=== PATIENT | female | born 1995 | race Caucasian/White ===

== ENCOUNTER → 2019-08-10 13:48 | Outpatient (BNVA) | payer SELFPAY | PROVIDERS: Visit Provider Obstetrics & Gynecology | DX: Z34.90 Encounter for supervision of normal pregnancy, unspecified, unspecified trimester (principal); A59.9 Trichomoniasis, unspecified | CPT/HCPCS: 81003; 84315 ==

== ENCOUNTER → 2019-08-24 08:45 | Outpatient (BNVA) | payer MEDICAID, SELFPAY | PROVIDERS: Visit Provider Obstetrics & Gynecology | DX: Z34.82 Encounter for supervision of other normal pregnancy, second trimester (principal) | CPT/HCPCS: 82950; 84315 ==

== ENCOUNTER → 2019-09-24 08:48 | Outpatient (BNVA) | payer MEDICAID, SELFPAY | PROVIDERS: Visit Provider Obstetrics & Gynecology | DX: O26.893 Other specified pregnancy related conditions, third trimester (principal); Z67.91 Unspecified blood type, Rh negative; A59.01 Trichomonal vulvovaginitis; O23.599 Infection of other part of genital tract in pregnancy, unspecified trimester | CPT/HCPCS: 84315; 85027; 87661 ==

== ENCOUNTER → 2019-10-01 08:28 | Outpatient (BNVA) | payer MEDICAID, SELFPAY | PROVIDERS: Visit Provider Obstetrics & Gynecology | DX: Z01.89 Encounter for other specified special examinations (principal) | CPT/HCPCS: 84315 ==

== ENCOUNTER → 2019-10-12 08:17 | Outpatient (BNVA) | payer MEDICAID, SELFPAY | PROVIDERS: Visit Provider Obstetrics & Gynecology | DX: Z01.89 Encounter for other specified special examinations (principal) | CPT/HCPCS: 84315 ==

== ENCOUNTER → 2019-10-27 11:44 | Outpatient (BNVA) | payer MEDICAID, SELFPAY | PROVIDERS: Visit Provider Obstetrics & Gynecology Female Pelvic Medicine and Reconstructive Surgery | DX: Z01.89 Encounter for other specified special examinations (principal) | CPT/HCPCS: 84315 ==

== ENCOUNTER → 2019-11-09 09:01 | Outpatient (BNVA) | payer MEDICAID, SELFPAY | PROVIDERS: Visit Provider Obstetrics & Gynecology | DX: Z34.83 Encounter for supervision of other normal pregnancy, third trimester (principal); A59.01 Trichomonal vulvovaginitis; O23.593 Infection of other part of genital tract in pregnancy, third trimester | CPT/HCPCS: 81000; 87081; 87210; 87491; 87591 ==

== ENCOUNTER 2019-11-22 10:33 | Outpatient (CLI) | payer MEDICAID, SELFPAY ==
[2019-11-22] VITALS (9 sets, daily range): BP systolic 129–150; BP diastolic 68–91; PULSE 84–114; RESP 16–22; TEMP 36.7–36.8; BMI 41.0
[2019-11-22 11:56] LABS: Bilirubin Urine Neg (NEGATIVE); Blood Urine Neg (Negative); Glucose Urine UA Norm (Normal); Ketones Urine Negative (Negative); Leukocyte Esterase Urine Negative (Negative); Nitrate Urine Negative (Negative); Protein Urine Neg (Negative); Specific Gravity, Urine 1.005 (1.005-1.030); Urine Appearance Cloudy (CLEAR); Urine Color Straw (Yellow); Urobilinogen Urine Norm (Negative)
[2019-11-22 11:59] LABS: Add Urine Microscopic? YES
[2019-11-22 12:00] LABS: Add Urine Culture? No; Bacteria Urine 3+; WBC Urine 0-4 /hpf (0-5)
== END 2019-11-22 14:14 | disposition home or self-care (01) ==
LOC: OPOB 10:39 → OBGYN 14:07
PROVIDERS: Visit Provider Obstetrics & Gynecology
DX: O26.899 Other specified pregnancy related conditions, unspecified trimester (principal); Z3A.00 Weeks of gestation of pregnancy not specified; R10.9 Unspecified abdominal pain
CPT/HCPCS: 59025; 81001; 81003; 99211

== ENCOUNTER → 2019-11-30 12:58 | Outpatient (BNVA) | payer MEDICAID, SELFPAY | PROVIDERS: Visit Provider Obstetrics & Gynecology | DX: Z34.83 Encounter for supervision of other normal pregnancy, third trimester (principal); Z3A.39 39 weeks gestation of pregnancy | CPT/HCPCS: 76816; 84315 ==

== ENCOUNTER 2019-12-03 06:49 | Inpatient (IN) | payer MEDICAID, SELFPAY ==
[2019-12-03] VITALS (130 sets, daily range): BP systolic 0–165; BP diastolic 0–90; PULSE 82–144; RESP 16–18; TEMP 36.6–37; O2SAT 88–100; BMI 41.3
[2019-12-03] MEDS: miSOPROStol 100 mcg tablet 25 MCG VAGINAL (08:02)
[2019-12-03 09:42] LABS: Basophils % 0.1 %; Eosinophils # 0.1 10^3/uL (0.0-0.8); Eosinophils % 0.6 %; Hematocrit 28.9 % (37.0-47.0); Hemoglobin 8.9 g/dL (11.5-15.3); Lymphocytes # 1.8 10^3/uL (0.8-4.8); Lymphocytes % 16.4 %; Mean Corpuscular HGB Conc 30.8 g/dL (30.0-36.0); Mean Corpuscular Hemoglobin 25.1 pg (28.0-34.0); Mean Corpuscular Volume 81.4 fL (81-99); Mean Platelet Volume 10.6 fL (7.4-10.4); Monocytes # 0.6 10^3/uL (0.2-0.9); Monocytes % 5.8 %; Neutrophils # 8.4 10^3/uL (1.8-7.7); Neutrophils % 76.2 %; Nucleated Red Blood Cells % 0 %; Platelet Count 401 10^3/cmm (130-400); Red Blood Count 3.55 10^6/uL (4.1-5.3); Red Cell Distribution Width 14.8 % (12.1-15.1)
--- NOTE | 2019-12-03 12:56 | PM.PN ---
Subjective Subjective: Interval history: 24-year-old female with estimated gestational age at 39 weeks. Referring some contractions. Vitals/I&O/Wt Last Vital Signs Temp 97.9 F 12/03/19 07:20 Pulse 104 H 12/03/19 12:48 Resp 17 12/03/19 07:20 BP 144/84 12/03/19 12:48 Weight last 48 hrs Weight 123.377 kg Physical Exam Narrative: EXAM NARRATIVE: GA: Alert and oriented ?3. Lungs: Clear to auscultation bilaterally. Heart: Regular rhythm and rate. Abdomen: Gravid, fundal height correlates dates, nontender. WINDOWS SUPPORT ENGINEER: SVE; dilation: 4 cm, effacement: 75 %, station: -3, presentation: Vertex, membranes: Intact. Extremities: no edema, no cyanosis, no calves pain. heart tracing: Basal rate: 140s bpm, Variability: Moderate, Accelerations: Present, Decelerations: Absent, Contractions: Every 4-5 minutes. Data : 12/03/19 07:40 A&P Additional A&P Information 24-year-old female at 39 weeks with macrosomia, Admitted for elective induction. As a postal was given this morning she started with regular contractions and have progressed from 3 cm to 4 cm. Anticipate vaginal delivery. The heart tracing category 1 Attestations Medical Necessity Statement*: My medical professional opinion for admitting diagnosis Coding Level of Care Code Acute Physician Practice Coordinator for Chris Rivera
[2019-12-03] MEDS: dextrose 5%-lactated ringers 1,000 ML 125 ML IV ×2 (12:59→20:25)
[2019-12-03] MEDS: oxytocin 30 UNIT/500 ML BAG IV (12:59)
[2019-12-03] MEDS: sodium chloride 0.9% 1,000 ML 999 ML IV (17:11)
--- NOTE | 2019-12-03 17:48 | P.ANESASSM_ITS ---
Pre-Anesthetic Assessment Pre-Anesthetic Assessment: Height/Weight: Height 1.73 m Weight 123.377 kg Temp Pulse Resp BP 98.4 F 93 17 0/0 12/03/19 12:41 12/03/19 16:49 12/03/19 12:41 12/03/19 17:16 Preop Diagnosis: labor pain Proposed Procedure: epidural Was Beta Carlos taken within 24 hours: N/A Social: Social History: No alcohol and No tobacco Exam: Pre-Anes Outpt Exam: alert, oriented x 3, clear to auscultation bilaterally and regular rate & rhythm Airway: Submandibular: WNL Cervical ROM: WNL MP: 1 Dentition: Full Pulmonary: Pulmonary: None reported CV/HEM: CV/HEM: None reported : : None reported Hepatic: Hepatic: None reported GI: GI: None reported Metabolic: Metabolic: None reported Musc/skel: Musc/skel: None reported Neuropsych: Neuropsych: None reported Anesthetic Plan: ASA status: 2 Anesthesia: Eval. for regional block Risk of > 500 ml blood loss (7ml/kg in children): No Meds/Allergies Current Medications: Current Medications Generic Name Dose Route Start Last Admin Trade Name Freq PRN Reason Stop Dose Admin Sodium Chloride 1,000 mls @ 125 m ls/hr 12/03/19 07:30 12/03/19 17:11 Sodium Chloride 0.9% IV 999 mls/hr .Q8H JIMBO Administration Dextrose/Lactated Ringer's 1,000 mls @ 125 m ls/hr 12/03/19 07:20 12/03/19 17:11 Dextrose 5%-Lact ated Ringers IV Infused .Q8H PRN Infusion per label comment s Oxytocin 30 unit in 500 ml s @ 1 mls/hr 12/03/19 12:15 12/03/19 16:30 Pitocin IV 7 milliunit/min .Q24H JIMBO 7 mls/hr Titration Protocol 1 MILLIUNIT/MIN PFSH Anesthesia PFSH: Medical History (Updated 12/01/19 @ 15:59 by Michael Carmen MD) Rh negative state in antepartum period Family History Unknown Patient denies medical problems Denies family history of: htn,dm,stroke,thyroid,hypercholesterolemia, breast/ovarian/uterine/colon/prostate cancer Social History Smoking and tobacco status: former smoker Quit status (tobacco): has quit using tobacco Year quit tobacco: 04/2019 Alcohol intake: never Female Reproductive History: : 2 Data Anesthesia CBC & Chem 7: 12/03/19 07:40 Other Labs: Laboratory Results - last 48 hr 12/03/19 07:40 WBC 11.0 H RBC 3.55 L Hgb 8.9 L Hct 28.9 L MCV 81.4 MCH 25.1 L MCHC 30.8 RDW 14.8 Plt Count 401 H MPV 10.6 H Neut % (Auto) 76.2 Lymph % (Auto) 16.4 [place] % (Auto) 5.8 Eos % (Auto) 0.6 Baso % (Auto) 0.1 Neut # (Auto) 8.4 H Lymph # (Auto) 1.8 [place] # (Auto) 0.6 Eos # (Auto) 0.1 Baso # (Auto) 0.0 Nucleated RBC % (auto) 0 Nucleated RBCs # 0.0 Cardiac Studies: No Data to Display
[2019-12-03] MEDS: lactated ringers 1,000 ML 999 ML IV (18:08)
--- NOTE | 2019-12-03 18:44 | P.ANES_ITS ---
Anesthesia Procedures Procedure/Date: 12/03/19 epidural Procedure Narrative: epidural complete, loss completed twice without the catheter being able to thread into the space, 3 mL normal saline placed into space and catheter threaded appropriately, bolus given, epidural pump initiated with PSYCHIATRIC REGISTERED NURSE education given, vitals taken during procedure using OBIX system and satisfactory throughout, patient admits to decrease pain, report of procedure to OB RN Epidural: Time Out Performed: Yes Consents Signed: Procedure Consent Consent: requested by attending/covering physician, from patient, risks and benefits reviewed and patient agrees to proceed Lumbar Level: L3-L4 Epidural position: sitting Epidural procedure: sterile prep of area, 1% lidocaine to numb the area (3 mL), 18 g needle, negative for paresthesia passed, neg for paresthesia, test dose given, 1.5% xylocaine 1:200k epi (5 mL), 0.2% Ropivacaine bolus ml (5 mL), placed PCEA, no systemic response, sterile dressing applied, L.U.D. no apparent complications and 0.2% Ropiavacaine @ mls/hr (13 mL/hr)
--- NOTE | 2019-12-03 22:17 | PC.NURSE ---
Epidural continues to infuse.
[2019-12-04] VITALS (37 sets, daily range): BP systolic 0–163; BP diastolic 0–112; PULSE 78–122; RESP 16–18; TEMP 36.5–37.2; O2SAT 97–100
[2019-12-04] MEDS: dextrose 5%-lactated ringers 1,000 ML 125 ML IV (00:16)
--- NOTE | 2019-12-04 01:41 | P.PCNOB_ITS ---
Delivery Note: Date of delivery: December 04, 2019 Pre-delivery diagnoses: Term . macrosomia Post-delivery diagnoses: Term delivered same as above Procedure: Spontaneous vaginal delivery Op report anesthesia: Epidural Delivering Physician: Michael Carmen M.D. Estimated blood loss (mL): 300 Findings: Male infant Apgars 9/9, weight 4245 g Pre-Delivery Course: The patient is a 24yo at 39 weeks EGA who has been receiving care from [facility]. Was admitted to labor and delivery for elective induction. Induction was started with misoprostol for cervical ripening, And she progressed to have a spontaneous vaginal delivery. LMP of 03/02/2019 Estimated date of confinement: EDC of 12/07/2019 based on LMP CC: Onset of labor at term. HPI: Received appropriate care. Daily vitamins since start a care. labs have all been normal, including negative for HIV except for positive trichomonas on multiple occasions. Initially the patient was noncompliant with medication treatment, then her refused to go get treated. She was found to Negative for Group B Strep from screening at 36 weeks. She has gained approximately 24 kg throughout the . She denies a history of HTN during . Glucose tolerance screening for gestational diabetes was negative. Delivery: The patient was noted to be complete and pushing, so was placed in the dorsal lithotomy position, prepped and draped in the usual sterile fashion for a vaginal delivery. Pt. Noted to have epidural anesthesia. At 0131 the patient delivered a A viable 39 weeks male infant weighing 4245 g with scores of 9 her and 9 at one and five minutes, respectively. The vertex was delivered spontaneously over Intact perineum. The patient was asked to push and the head delivered spontaneously in the SALINAS position, over an intact perineum. A nuchal cord was checked and None noted. The anterior shoulder delivered easily and the posterior shoulder followed. The remainder of the infant was easily delivered and the oropharynx and nasopharynx was bulb suctioned. The was noted to have spontaneous cry and spontaneous movement of all four extremities. The cord was clamped x 2 and cut and noted to have 2 arteries and one vein. The was passed to the [facility] where Nursing personnel were in attendance. Cord blood sample was then obtained. The placenta delivered intact Spontaneously and the uterus Was explored. 20 units of Pitocin was placed in the IV bag to firm the uterus. Examination of the cervix and vaginal vault did not reveal any lacerations. A vaginal pack was then placed. Examination of the perineum showed No lacerations. The vaginal pack was then removed. The patient tolerated this procedure well, and recovered in L&D with her infant. All sponge and needle counts were correct. A&P Assessment and plan (1) macrosomia in in third trimester: Status: Acute Qualifiers: Fetus number: single or unspecified fetus Qualified Code(s): O36.63X0 - Maternal care for excessive growth, third trimester, not applicable or unspecified (2) Term : Status: Acute Coding Level of Care Code Acute Mechanical Press Operator for Chg Fwd Diagnoses macrosomia in in third trimester O36.63X0 Fetus number: single or unspecified fetus Term Z34.90
--- NOTE | 2019-12-04 02:49 | PC.NURSE ---
Epidural stopped after delivery of
[2019-12-04] MEDS: methylergonovine 0.2 mg/mL INJ 1 mL IM (03:16)
[2019-12-04] MEDS: oxytocin 30 UNIT/500 ML BAG 7 UNIT IV (03:19)
[2019-12-04] MEDS: docusate sodium 100 mg Capsule PO ×2 (09:34→18:39)
[2019-12-04] MEDS: prenatal vitamin Capsule 1 CAP PO (09:34)
[2019-12-04 15:03] LABS: Hematocrit 25.5 % (37.0-47.0); Hemoglobin 7.8 g/dL (11.5-15.3); Mean Corpuscular HGB Conc 30.6 g/dL (30.0-36.0); Mean Corpuscular Hemoglobin 24.4 pg (28.0-34.0); Mean Corpuscular Volume 79.7 fL (81-99); Mean Platelet Volume 10.7 fL (7.4-10.4); Platelet Count 347 10^3/cmm (130-400); White Blood Count 12.8 10^3/uL (4.0-10.0)
[2019-12-05 04:00] VITALS: BP 122/84; PULSE 88; RESP 16; TEMP 36.4; O2SAT 98
[2019-12-05] MEDS: prenatal vitamin Capsule 1 CAP PO (08:57)
[2019-12-05] MEDS: docusate sodium 100 mg Capsule PO (08:57)
[2019-12-05 10:49] VITALS: BP 130/83; PULSE 88; RESP 16; TEMP 36.4
[2019-12-05 10:51] VITALS: BP 130/83; PULSE 88; RESP 16; TEMP 36.4
--- NOTE | 2019-12-05 10:55 | P.DS_ITS ---
Discharge Providers EDUCATION FINANCE PROCESSOR Date of Admission: 12/03/19 06:49 Date of Discharge: 12/05/19 Attending Provider at Admission: Michael Carmen MD Attending Provider at Discharge: Michael Carmen MD Diagnoses at Discharge Discharge Diagnosis (1) macrosomia in in third trimester: Status: Acute Qualifiers: Fetus number: single or unspecified fetus Qualified Code(s): O36.63X0 - Maternal care for excessive growth, third trimester, not applicable or unspecified (2) Term : Status: Acute Reason for Visit Reason for Visit: Brief History: 24-year-old female with an estimated gestational age of 39 weeks admitted for elective induction and suspected microsomia. Hospital Course Hospital Course: 24-year-old female with an estimated gestational age of 39 weeks admitted for elective induction and suspected microsomia. Induction was started with misoprostol for cervical ripening then she adequately progressed to a spontaneous vaginal delivery. She delivered a male infant With a weight of 4245 g and Apgars of 9/9. Her An overnight observation at the hospital has been uneventful. She is afebrile hemodynamically stable. Tolerating diet well, and ambulating without difficulty. Information Peripartum Data: Infant Delivery Method: Vaginal Physical Exam Narrative: EXAM NARRATIVE: GA; alert and oriented x 3 HEENT: normal Breasts: engorged Nipples - skin intact Lungs; clear to auscultation Heart: regular rhythm, no murmurs. Abd: Appropriately tender. BS+. Uterine fundus below umbilicus. No Fundal Tenderness. Perineum: normal lochia. Extremities: no edema, no cyanosis, no tenderness. Urinary Catheter Management^: [place]te: Cath Placed During This Visit: yes, but has since been removed by the nurse Reason for Continuing Indwelling Catheter: Required Immobilization for Trauma or Surgery or Anesthesia Urinary Catheter Date of Insertion: 12/03/19 Urinary Catheter Time of Insertion: 19:00 Date Urinary Catheter Removed: 12/04/19 Time Urinary Catheter Discontinued: 01:20 Discharge Data Data Completed and Pending: Laboratory Tests 12/03/19 07:40 WBC 11.0 H Hgb 8.9 L Hct 28.9 L Plt Count 401 H Pending at discharge Category Date Time Status Retype for Patiet s ABO/Rh Routine Lab 12/04/19 14:15 Received Labs from last 24 hours 12/04/19 12/04/19 12/03/19 14:15 14:15 07:40 WBC 12.8 H RBC 3.20 L Hgb 7.8 L Hct 25.5 L MCV 79.7 L MCH 24.4 L MCHC 30.6 RDW 15.0 Plt Count 347 MPV 10.7 H Blood Type O Negative Rho(D) Type Negaive Antibody Screen Negative Screen Negative Imaging^: OB US: Attestation: I personally reviewed and interpreted this imaging study as foll ows: Radiologist's impression: [facility] [address] [place] [id number] Ultrasound Report Signed Patient: Helen Meza #: [id number] : 1995Acct#:[id number] Age/Sex: 24 / FADM Date: 11/30/19 [facility] Attending Dr: Michael Carmen MD Ordering Provider/Ordering MD: Michael Carmen MD Date of Service: 11/30/19 Procedure(s): [place] [id number] Accession Number(s): [id number] Report Number: [id number] WS: [id number] ULTRASOUND OB LIMITED TECHNIQUE: Limited ultrasound examination of the fetus. 001 CLINICAL INFORMATION: GROWTH LMP March 02, 2019 COMPARISON: None. FINDINGS: Cervix measures 4.5 cm Single interuterine gestation. presentation is cephalic Placental location is fundal right lateral. Placenta grade: 2 heart rate 135 BPM. AMADO 9.0 CM. Largest pocket measures 4.5 cm. Anatomy: BDP: 9.7 cm = 39w4d HC: 34.5 cm = 39w6d AC: 39.5 cm = out of range FEMUR LENGTH: 7.5 cm = 38w1d Estimated weight: 4446 g., 97 %. EGA by ultrasound: 39w1d BATSHEVA by ultrasound: December 06, 2019 US/[place] [id number] IMPRESSION: 1. Single intrauterine gestation with cephalic presentation. 2. Placenta grade 2. 3. Cervix measures 4.5 cm. 4. Normal AMADO 9.0 CM. 5. Estimated gestational age 39 weeks 1 day with estimated delivery December 06, 2019 6. weight at the 97th percentile. Dictated By:Nelson Kirby MD Signed By:Nelson Kirby MDSigned Date/Time:11/30/191407 DD/ 140 Vitals: Last Vital Signs Temp 97.6 F 12/05/19 10:51 Pulse 88 12/05/19 10:51 Resp 16 12/05/19 10:51 BP 130/83 12/05/19 10:51 Pulse Ox 98 12/05/19 04:00 Discharge Plan Discharge Patient Disposition: Home, Self-Care Condition: Stable Prescriptions: New acetaminophen 325 mg Tablet 650 mg PO Q6H PRN (Reason: mild pain for temp >100.4.) Qty: 60 RF: 0 ibuprofen 800 mg Tablet 800 mg PO TID Qty: 60 RF: 0 ferrous sulfate 325 mg (65 mg iron) tablet 325 mg PO TID Qty: 90 RF: 2 Continued prenat.vits,yamil,xlc-jyxt-cpiip Tablet 1 tab PO DAILY RF: 0 ascorbic acid (vitamin C) 250 mg tablet 250 mg PO DAILY RF: 0 Discharge Orders: Discharge Order (Routine); Ordered 12/05/19 Ordered By: Michael Carmen Discharge Diet: Regular Discharge Activity: Increase activity as tolerated Activity Restrictions/Additional Instructions: Pelvic rest for 6 weeks (no sex, no tampons, no vaginal douches). Return to the emergency room if any fever, increased bleeding or pain. Discharge Attestations EDUCATION FINANCE PROCESSOR Time Spent in Discharge Care*: greater than 30 min Specific Discharge Activities: Specific discharge activities: educating patient Time Spent in Smoking Cessation: Time spent discussing smoking cessation with patient: 3 to 10 minutes Status at Discharge: Cognitive status at discharge: cognitively intact , Behavioral status at discharge: cooperative , Functional status at discharge: independent ambulation Overall status at discharge: patient is back to baseline Coding Level of Care Code Acute Ethnic Origins Teacher for Chg Fwd Diagnoses macrosomia in in third trimester O36.63X0 Fetus number: single or unspecified fetus Term Z34.90
[2019-12-05] MEDS: medroxyprogesterone 150 mg/ml SDV 1 mL IM (12:40)
== END 2019-12-05 12:58 | disposition home or self-care (01) | DRG 807 ==
PROVIDERS: Admitting Provider Obstetrics & Gynecology; Visit Provider Obstetrics & Gynecology
DX: O36.63X0 Maternal care for excessive fetal growth, third trimester, not applicable or unspecified (principal); Z37.0 Single live birth; Z3A.39 39 weeks gestation of pregnancy; Z87.891 Personal history of nicotine dependence
CPT/HCPCS: 12345; 36415; 51702; 59025; 59409; 85025; 85027; 85460; 86850; 86900; 90384; 96372; 99211; J1050; J2210; J2795; J7030

== ENCOUNTER 2022-06-28 01:14 | Inpatient (IN) | payer MEDICAID, SELFPAY ==
[2022-06-28] VITALS (21 sets, daily range): BP systolic 108–144; BP diastolic 56–98; PULSE 78–102; RESP 16–18; TEMP 36.2–36.8; BMI 43.9
[2022-06-28] MEDS: oxytocin 30 UNIT/500 ML BAG 600 UNIT IV (01:45)
[2022-06-28 01:54] LABS: Basophils % 0.1 %; Eosinophils % 0.1 %; Hematocrit 28.8 % (37.0-47.0); Hemoglobin 8.9 g/dL (11.5-15.3); Lymphocytes % 7.1 %; Mean Corpuscular HGB Conc 30.9 g/dL (30.0-36.0); Mean Corpuscular Hemoglobin 23.9 pg (28.0-34.0); Mean Corpuscular Volume 77.2 fl (81-99); Mean Platelet Volume 10.7 fL (7.4-10.4); Monocytes # 0.4 10^3/uL (0.2-0.9); Monocytes % 3.1 %; Neutrophils # 11.94 10^3/uL (1.8-7.7); Neutrophils % 89.2 %; Nucleated Red Blood Cells % 0 %; Platelet Count 391 10^3/cmm (130-400); Red Blood Count 3.73 10^6/uL (4.1-5.3); Red Cell Distribution Width 16.3 % (12.1-15.1); White Blood Count 13.4 10^3/uL (4.0-10.0)
--- NOTE | 2022-06-28 02:11 | PM.OPHPUD ---
Labor & Delivery H&P Update Date of Procedure: June 28, 2022 Date H&P Performed: 06/25/22 Admission Diagnosis: 27-year-old 3 at 39 weeks estimated gestational age presenting to the hospital via EMS after a home delivery. Preop diagnosis: labor pain Planned procedure: Delivery of placenta, and evaluation Other information: Helen is a 27-year-old 3 now para 3-0-0-3 at 39 weeks estimated gestational age who had a at home vaginal delivery. She stated that she was walking around having some mild contractions when she suddenly felt a lot of pressure and delivered her baby in her bed. She contacted EMS who then brought her to baby to the hospital for further evaluation. Her placenta was still in position upon arriving at the hospital. Her labs were as follows her blood type is O-. Her antibody screen was negative. She received RhoGAM on April 11. She is rubella immune. She is GBS negative. She passed her glucose screen. The remainder of her infectious disease profile was within normal limits.
--- NOTE | 2022-06-28 02:14 | P.PCNOB_ITS ---
Delivery Note: Date of delivery: June 28, 2022 Pre-delivery diagnoses: 27-year-old 3 para 2-0-0-2 at 39 weeks estimated gestational age Post- delivery diagnoses: At home vaginal delivery Procedure: Spontaneous vaginal delivery Delivering Physician: None. I did deliver the placenta Estimated blood loss (mL): 50 Pre-Delivery Course: The patient was at home when she started having some mild contractions started feeling some pressure sat down on her bed where she had a spontaneous vaginal delivery. Delivery: The mother states that she had a spontaneous vaginal delivery. The baby was headfirst. There did not appear to be a nuchal cord or meconium. EMS was contacted then brought the patient to the hospital. There was almost no bleeding prior to arrival to the hospital. I then evaluated the patient for any tears as well as noting the placenta was still in position. I obtained cord blood. After an IV was placed, I was able to deliver the placenta without difficulty. I examined the perineum and vaginal vault and found no tears. The baby was noted to be 7 pounds 11 ounces. EMS stated that Apgars were 9 and 9. Post-Delivery Status: Good History History History 3 Term 3 0 Miscarriages/Ectopic 0 Living Children 3 Past Pregnancies Del. Date GA/Weeks Outcome Route Wt Inf Gender Labor Lgth Comp. Anesth esia Location 06/05/16 39 live - full term Vaginal 8 lb 9 oz Male 24 hours [facility] A&P Assessment and plan (1) Spontaneous vaginal delivery: Both mother and baby appear to be doing excellent. I anticipate routine care. (2) 39 weeks gestation of : Coding Level of Care Code Acute New Client Banking Services Clerk for Chg Fwd Diagnoses Spontaneous vaginal delivery O80 39 weeks gestation of Z3A.39
[2022-06-28] MEDS: ibuprofen 800 mg tablet PO ×4 (02:35→21:10)
[2022-06-28] MEDS: prenatal vitamin Capsule 1 CAP PO (09:43)
[2022-06-28] MEDS: docusate sodium 100 mg Capsule PO ×2 (09:43→21:10)
[2022-06-28 14:21] LABS: Hematocrit 25.9 % (37.0-47.0); Hemoglobin 7.9 g/dL (11.5-15.3); Mean Corpuscular HGB Conc 30.5 g/dL (30.0-36.0); Mean Corpuscular Hemoglobin 23.7 pg (28.0-34.0); Mean Corpuscular Volume 77.8 fl (81-99); Mean Platelet Volume 10.5 fL (7.4-10.4); Platelet Count 366 10^3/cmm (130-400); Red Blood Count 3.33 10^6/uL (4.1-5.3); Red Cell Distribution Width 16.5 % (12.1-15.1); White Blood Count 8.4 10^3/uL (4.0-10.0)
[2022-06-28] MEDS: benzocaine-menthol 78 gm Canister 1 SPRAY TOPICAL (21:10)
[2022-06-29 03:57] VITALS: BP 157/85; PULSE 88; RESP 16; TEMP 36.8
[2022-06-29] MEDS: docusate sodium 100 mg Capsule PO (08:52)
[2022-06-29] MEDS: ibuprofen 800 mg tablet PO (08:52)
[2022-06-29] MEDS: prenatal vitamin Capsule 1 CAP PO (08:52)
--- NOTE | 2022-06-29 09:29 | PM.OBGYDC ---
Discharge Providers PACKAGE LINE RELIEF OPERATOR Date of Admission: 06/28/22 01:14 Date of Discharge: 06/30/22 Attending Provider at Admission: Yovany Chavez MD Attending Provider at Discharge: Yovany Chavez MD Diagnoses at Discharge Discharge Diagnosis (1) Spontaneous vaginal delivery: Status: Resolved (2) 39 weeks gestation of : Status: Resolved Reason for Visit Reason for Visit: ems home delivery Hospital Course Hospital Course The patient arrived to the hospital via EMS after delivering her baby at home. Her placenta had not been delivered, and I did deliver her placenta without difficulty. Otherwise her course was unremarkable. Her bleeding was within normal limits. Her pain was well controlled. Information Peripartum Data: Delivery Method: Vaginal Physical Exam Narrative: The patient is alert. She appears comfortable. Her heart has a regular rate and rhythm with no murmurs appreciated. Lungs are clear to auscultation bilaterally. Her fundus is firm and below the umbilicus. History History History 3 Term 3 0 Miscarriages/Ectopic 0 Living Children 3 Past Pregnancies Del. Date GA/Weeks Outcome Route Wt Inf Gender Labor Lgth Comp. Anesthesia Location 06/05/16 39 live - full term Vaginal 8 lb 9 oz Male 24 hours [facility] Discharge Data Studies Completed and Pending Laboratory Results WBC 8.4 10^3/uL (4.0-10.0) 06/28/22 14:10 RBC 3.33 10^6/uL (4.1-5.3) L 06/28/22 14:10 Hgb 7.9 g/dL (11.5-15.3) L 06/28/22 14:10 Hct 25.9 % (37.0-47.0) L 06/28/22 14:10 MCV 77.8 fl (81-99) L 06/28/22 14:10 MCH 23.7 pg (28.0-34.0) L 06/28/22 14:10 MCHC 30.5 g/dL (30.0-36.0) 06/28/22 14:10 RDW 16.5 % (12.1-15.1) H 06/28/22 14:10 Plt Count 366 10^3/cmm (130-400) 06/28/22 14:10 MPV 10.5 fL (7.4-10.4) H 06/28/22 14:10 Neut % (Auto) 89.2 % 06/28/22 01:40 Lymph % (Auto) 7.1 % 06/28/22 01:40 [place] % (Auto) 3.1 % 06/28/22 01:40 Eos % (Auto) 0.1 % 06/28/22 01:40 Baso % (Auto) 0.1 % 06/28/22 01:40 Neut # (Auto) 11.94 10^3/uL (1.8-7.7) H 06/28/22 01:40 Lymph # (Auto) 1.0 10^3/uL (0.8-4.8) 06/28/22 01:40 [place] # (Auto) 0.4 10^3/uL (0.2-0.9) 06/28/22 01:40 Eos # (Auto) 0.0 10^3/uL (0.0-0.8) 06/28/22 01:40 Baso # (Auto) 0.0 10^3/uL (0.0-0.1) 06/28/22 01:40 Nucleated RBC % (auto) 0 % 06/28/22 01:40 Nucleated RBCs # 0.0 /100WBC 06/28/22 01:40 Blood Type O Negative 06/28/22 01:40 Rho(D) Type Negative 06/28/22 01:40 Antibody Screen Negative 06/28/22 01:40 Screen Negative (Negative) 06/28/22 14:10 Vitals Last Vital Signs Temp 98.3 F 06/29/22 03:57 Pulse 88 06/29/22 03:57 Resp 16 06/29/22 03:57 BP 157/85 06/29/22 03:57 O2 Del Method 06/28/22 01:00 Discharge Plan Discharge Patient Disposition: Home Condition: Stable Prescriptions: New ibuprofen 800 mg Tablet 800 mg PO TID Qty: 45 0RF Continued prenat.vits,yamil,ftc-yyxm-nobdy Tablet 1 tab PO DAILY ascorbic acid (vitamin C) 250 mg tablet 250 mg PO DAILY acetaminophen 325 mg Tablet 650 mg PO Q6H PRN (Reason: mild pain for temp >100.4.) Qty: 60 0RF ferrous sulfate 325 mg (65 mg iron) tablet 325 mg PO TID Qty: 90 2RF Discontinued ibuprofen 800 mg Tablet 800 mg PO TID Qty: 60 0RF Discharge Orders: Discharge Order (Routine); Ordered 06/29/22 Ordered By: Yovany Chavez Referrals: Yovany Chavez MD [Physician] - 08/07/22 1:30 pm Discharge Diet: Usual diet Discharge Activity: Limit activity as instructed Patient Instructions: Depression (DC), Bleeding (DC), Preeclampsia and Eclampsia After Delivery (GEN), Vaginal Delivery (DC), OB Discharge Report, OB Food/Drug Interaction Guide, Opioid Safety, OB Home Care, OB Proud Parent Packet Discharge Attestations PACKAGE LINE RELIEF OPERATOR Time Spent in Discharge Care*: less than 30 min Status at Discharge: Cognitive status at discharge: cognitively intact, Behavioral status at discharge: cooperative, Coding Level of Care Code Acute Plating Tank Operator Apprentice for Chg Fwd Diagnoses Spontaneous vaginal delivery O80 39 weeks gestation of Z3A.39
[2022-06-29] MEDS: medroxyprogesterone 150 mg/ml SDV 1 mL IM (09:36)
[2022-06-29 10:24] VITALS: BP 136/81; PULSE 108; RESP 16; TEMP 36.8; O2SAT 99
== END 2022-06-29 10:19 | disposition home or self-care (01) | DRG 776 ==
LOC: OPOB 01:15 → OBGYN 01:15
PROVIDERS: Admitting Provider Family Medicine; Visit Provider Family Medicine
DX: O73.0 Retained placenta without hemorrhage (principal); Z3A.39 39 weeks gestation of pregnancy
CPT/HCPCS: 12345; 36415; 59409; 85025; 85027; 85460; 86850; 86900; 90384; 96372; 99211; J1050; J2590

== ENCOUNTER 2024-11-09 09:20 | Emergency (ER) | payer MEDICAID, SELFPAY ==
[2024-11-09 09:25] VITALS: BP 146/103; PULSE 95; RESP 20; TEMP 36.4; O2SAT 98
--- NOTE | 2024-11-09 09:45 | W.ED.GENADLT ---
HPI - General Adult General: Chief complaint: Nausea/Vomiting/Diarrhea Stated complaint: nausea Time Seen by Provider: 11/09/24 09:21 Source: patient Mode of arrival: ambulatory Limitations: no limitations History of Present Illness: Patient is a 29-year-old female who presents today with nausea and fatigue. Patient states that she has all the signs of , however all of her at home tests have been negative. Patient states that she feels the same as she did when she was first with her daughter. She states that her last period was September 11, 2024. Patient is requesting testing here. At time of my examination she is chasing around her two kids in the room-one of which is autistic-and she wants to leave and just be called with results. Onset (ago): month(s) Relieving factors: none Exacerbating factors: none Associated symptoms: Reports nausea; Deny chest pain, dyspnea, fevers/chills, headache(s), palpitations, short of breath, syncope or vomiting Treatments prior to arrival: none Related Data Home Medications ?Medication ?Instructions ?Recorded ?Confirmed ibuprofen 200 mg tablet (Advil) 600 mg PO Q6H PRN Fever Or Pain 11/09/24 11/09/24 Allergies Allergy/AdvReac Type Severity Reaction Status Date / Time acetaminophen (From Tylenol) Allergy Mild Rash Verified 12/01/19 14:53 Review of Systems Const: Denies: fever(s), chills or body aches Card: Denies: chest pain, palpitations, lightheadedness or syncope Resp: Denies: dyspnea, wheezing or stridor GI: Reports: nausea and bloating; Denies: abdominal pain or vomiting : Reports: amenorrhea; Denies: flank pain, dysuria or pelvic pain Musc: Denies: neck pain, back pain or extremity pain Neuro: Denies: headache(s), numbness in extremities or weakness in extremities PFSH ED PFSH: Medical History Rh negative state in antepartum period Family History Unknown Patient denies medical problems Denies family history of: htn,dm,stroke,thyroid,hypercholesterolemia, breast/ovarian/uterine/colon/prostate cancer Social History Smoking and tobacco/nicotine status: former use of tobacco/nicotine Quit status (tobacco/nicotine): has quit using Year quit tobacco: 04/2019 Alcohol intake: never Substance/Drug Use: never Physical Exam Const: COMMON NORMALS: no acute distress, patient oriented x3, no limitations, healthy appearing, alert and well nourished GENERAL APPEARANCE: cooperative NUTRITIONAL APPEARANCE: overweight ORIENTATION/CONSCIOUSNESS: Yes awake, Yes oriented to person, Yes oriented to place and Yes oriented to time Resp: COMMON NORMALS: normal respiratory effort, No retractions, No use of accessory muscles and clear to auscultation bilaterally EFFORT & INSPECTION: Yes able to speak in complete sentences and Yes symmetric chest movement AUSCULTATION: clear to auscultation bilaterally Cardio: COMMON NORMALS: regular rate and regular rhythm RATE: regular rate RHYTHM: regular rhythm GI: COMMON NORMALS: Normal to inspection, nondistended, normoactive bowel sounds present, Soft to palpation, non-tender, No hepatosplenomegaly present and no masses PALPATION: Yes Soft to palpation and Yes No hepatosplenomegaly present : COMMON NORMALS: Yes no CVA tenderness BLADDER/KIDNEY EXAM: Yes no CVA tenderness Back/Pelvis: COMMON NORMALS: no CVA tenderness Neuro: COMMON NORMALS: patient oriented x3 SENSORIUM/ORIENTATION: Yes alert, Yes oriented to person, Yes oriented to place and Yes oriented to time Course Vital Signs: Vital signs: Vital Signs Temperature 97.5 F L 11/09/24 09:25 Pulse Rate 95 11/09/24 09:25 Respiratory Rate 20 H 11/09/24 09:25 Blood Pressure 146/103 11/09/24 09:25 Pulse Oximetry 98 11/09/24 09:25 MDM - General Adult Medical Decision Making Patient was discharged from the emergency department. I told her I would personally call her with results. I did speak to her shortly after she left and let her know that her blood work is unremarkable and her was negative. Will have her follow-up with primary care. Case management referral placed for this. Return ED precautions discussed. Medical Records I reviewed the patient's medical records. Lab Data I reviewed the patient's lab results. 11/09/24 09:56 11/09/24 09:56 Laboratory Results WBC 6.19 10^3/uL (3.29-11.43) 11/09/24 09:56 RBC 4.90 10^6/uL (3.85-5.65) 11/09/24 09:56 Hgb 13.10 g/dL (11.27-16.99) 11/09/24 09:56 Hct 41.9 % (36-47) 11/09/24 09:56 MCV 85.5 fl (85-98) 11/09/24 09:56 MCH 26.7 pg (27-33) L 11/09/24 09:56 MCHC 31.3 g/dL (30-55) 11/09/24 09:56 RDW 14.9 % (12.1-15.1) 11/09/24 09:56 Plt Count 301 10^3/cmm (157-399) 11/09/24 09:56 MPV 11.6 fL (7.4-10.4) H 11/09/24 09:56 Neut % (Auto) 66.2 % 11/09/24 09:56 Lymph % (Auto) 26.8 % 11/09/24 09:56 [place] % (Auto) 5.3 % 11/09/24 09:56 Eos % (Auto) 0.6 % 11/09/24 09:56 Baso % (Auto) 0.8 % 11/09/24 09:56 Neut # (Auto) 4.09 10^3/uL (1.8-7.7) 11/09/24 09:56 Lymph # (Auto) 1.7 10^3/uL (0.8-4.8) 11/09/24 09:56 Jefferson # (Auto) 0.3 10^3/uL (0.2-0.9) 11/09/24 09:56 Eos # (Auto) 0.0 10^3/uL (0.0-0.8) 11/09/24 09:56 Baso # (Auto) 0.1 10^3/uL (0.0-0.1) 11/09/24 09:56 Nucleated RBC % (auto) 0 % 11/09/24 09:56 Nucleated RBCs # 0.0 /100WBC 11/09/24 09:56 Sodium 143 mmol/L (136-145) 11/09/24 09:56 Potassium 4.2 mmol/L (3.5-5.1) 11/09/24 09:56 Chloride 106 mmol/L (98-107) 11/09/24 09:56 Carbon Dioxide 22 mmol/L (22-29) 11/09/24 09:56 Anion Gap 19.2 (5-19) H 11/09/24 09:56 BUN 9 mg/dL (6-20) 11/09/24 09:56 Creatinine 0.7 mg/dL (0.5-0.9) 11/09/24 09:56 GFR Calculation 98.3 mL/min (90-130) 11/09/24 09:56 Glucose 101 mg/dL (65-115) 11/09/24 09:56 Calculated Osmolality 295 mOsm/kg (285-295) 11/09/24 09:56 Calcium 9.2 mg/dL (8.5-10.5) 11/09/24 09:56 Total Bilirubin 0.6 mg/dL (0.15-1.2) 11/09/24 09:56 AST 18 U/L (0-32) 11/09/24 09:56 ALT 20 U/L (0-33) 11/09/24 09:56 Alkaline Phosphatase 101 U/L (35-105) 11/09/24 09:56 Total Protein 8.0 g/dL (6.6-8.7) 11/09/24 09:56 Albumin 4.6 g/dL (3.5-5.2) 11/09/24 09:56 Globulin 3.4 g/dL (1.3-4.6) 11/09/24 09:56 Ser , Semi-Qnt < 1.00 mIU/mL 11/09/24 09:56 No radiology studies performed this visit Discharge Plan Discharge Patient Disposition: Home Clinical Impression: Negative test Condition: Stable Prescriptions: No Action ibuprofen [Advil] 200 mg Tablet 600 mg PO Q6H PRN (Reason: Fever Or Pain) Discharge Orders: Discharge ED (Routine); Ordered 11/09/24 Ordered By: Cristine Rowell Print Language: Bots[place] Coding Level of Care Code ED Insole Toe Snipping Machine Operator for Chris Rivera
[2024-11-09 10:21] LABS: Basophils # 0.1 10^3/uL (0.0-0.1); Basophils % 0.8 %; Eosinophils % 0.6 %; Hematocrit 41.9 % (36-47); Lymphocytes # 1.7 10^3/uL (0.8-4.8); Lymphocytes % 26.8 %; Mean Corpuscular HGB Conc 31.3 g/dL (30-55); Mean Corpuscular Hemoglobin 26.7 pg (27-33); Mean Corpuscular Volume 85.5 fl (85-98); Mean Platelet Volume 11.6 fL (7.4-10.4); Monocytes # 0.3 10^3/uL (0.2-0.9); Monocytes % 5.3 %; Neutrophils # 4.09 10^3/uL (1.8-7.7); Neutrophils % 66.2 %; Nucleated Red Blood Cells % 0 %; Platelet Count 301 10^3/cmm (157-399); Red Cell Distribution Width 14.9 % (12.1-15.1); White Blood Count 6.19 10^3/uL (3.29-11.43)
[2024-11-09 10:53] LABS: HCG Quantitative < 1.00 mIU/mL
--- NOTE | 2024-11-09 11:06 | DCPLANNER ---
Message sent to clinic to establish PCP
[2024-11-09 11:09] LABS: Alanine Aminotransferase 20 U/L (0-33); Albumin Level 4.6 g/dL (3.5-5.2); Alkaline Phosphatase 101 U/L (35-105); Anion Gap 19.2 (5-19); Aspartate Amino Transferase 18 U/L (0-32); Blood Urea Nitrogen 9 mg/dL (6-20); Calcium 9.2 mg/dL (8.5-10.5); Carbon Dioxide 22 mmol/L (22-29); Chloride 106 mmol/L (98-107); Creatinine Clr Calc Pharmacy 129.1539; Globulin 3.4 g/dL (1.3-4.6); Glomerular Filtration Rate 98.3 mL/min (90-130); Glucose 101 mg/dL (65-115); Osmolality Calculated 295 mOsm/kg (285-295); Potassium 4.2 mmol/L (3.5-5.1); Sodium 143 mmol/L (136-145); Total Bilirubin 0.6 mg/dL (0.15-1.2)
== END 2024-11-09 11:28 | disposition home or self-care (01) ==
PROVIDERS: Emergency Provider Physician Assistant
DX: R11.0 Nausea (principal); R53.83 Other fatigue; Z87.891 Personal history of nicotine dependence; Z32.02 Encounter for pregnancy test, result negative
CPT/HCPCS: 80053; 84702; 85025; 99283